=== PATIENT | female | born 1960 | race Caucasian/White ===

== ENCOUNTER 2024-05-21 17:43 | Emergency (ER) | payer MEDICARE, OTHER, SELFPAY ==
[2024-05-21 17:48] VITALS: BP 168/98
[2024-05-21 18:12] LABS: % Basophils 0.4 % (0-2); % Eosinophils 3.8 % (0-6); % Immature Granulocytes 0.4 % (0-0.5); % Lymphocytes 29.5 % (20.5-51.1); % Monocytes 10.8 % (1.7-9.3); % Neutrophils 55.1 % (42.2-75.2); Absolute Eosinophils 0.2 10^3/uL (0-0.7); Absolute Lymphocytes 1.4 10^3/uL (1.2-3.4); Absolute Monocytes 0.5 10^3/uL (0.1-0.6); Absolute Neutrophils 2.6 10^3/uL (1.4-6.5); Hematocrit 43.8 % (37.0-47.0); Hemoglobin 14.2 g/dL (12.0-16.0); Mean Corp Hgb Conc. 32.4 g/dL (33.0-37.0); Mean Corpuscular Hgb 30.7 pg (27.0-31.0); Mean Corpuscular Volume 94.6 fL (81.0-99.0); Mean Platelet Volume 9.1 fL (7.4-10.4); Nucleated Red Blood Cells % 0 %; Platelet Count 217 10^3/uL (130-400); Red Blood Cell Count 4.63 10^6/uL (4.20-5.40); Red Cell Dist. Width 13.2 % (11.5-14.5); White Blood Cell Count 4.7 10^3/uL (4.8-10.8)
[2024-05-21 18:28] LABS: ALT (SGPT) 23 U/L (0-35); AST (SGOT) 29 U/L (14-36); Albumin 4.7 g/dl (3.5-5.0); Alkaline Phosphatase 34 U/L (38-126); Blood Urea Nitrogen 33 mg/dl (7-17); Calcium 10.8 mg/dl (8.4-10.2); Carbon Dioxide 28 mmol/L (22-30); Chloride 101 mmol/L (98-107); Glucose 105 mg/dl (70-99); Potassium 4.2 mmol/L (3.5-5.1); Sodium 140 mmol/L (135-145); Total Bilirubin 0.3 mg/dl (0.2-1.3); Total Protein 6.9 g/dl (6.3-8.2); eGFR > 60.00
[2024-05-21 18:35] LABS: Troponin I < 0.012 ng/ml
[2024-05-21 19:08] VITALS: BMI 22.6
[2024-05-21] MEDS: MAALOX 30 PO (19:17)
--- NOTE | 2024-05-21 20:04 | ED.GENMED ---
History of Present Illness
<Jeancarlos Villavicencio DO - Last Filed: 05/22/24 17:06>
General
Chief Complaint: Chest Pain
Source: patient
Time Seen by Provider: 05/21/24 18:41
History of Present Illness
History of Present Illness:
Patient just discharge from the emergency room. Radiology called suggesting an abnormality on her chest x-ray recommending a CT of the chest to exclude aortic pathology. Patient was called back for the study. No new complaints.
Phy Exam
<Jeancarlos Villavicencio DO - Last Filed: 05/22/24 17:06>
Physical Exam
Physical Exam:
General: Awake, alert, no distress
Vitals: Unremarkable
Neuro: Awake, alert, nonfocal
Scores
<Digna Becker PA-C - Last Filed: 05/22/24 17:07>
Heart Score for Chest Pain Patients
STEMI patient?: Not applicable
Course
<DO Virginia Hilario Last Filed: 05/22/24 17:06>
Orders/Labs/Results
Orders:
Orders
05/21/24 17:43
EKG [Electrocardiogram (*1)] Urgent
Reason for Study: Chest Pain
05/21/24 17:44
EKG- Treatment ONCE
05/21/24 18:02
Complete Blood Count/With Diff Urgent
Comprehensive Metabolic Panel Urgent
Troponin I Urgent
05/21/24 18:54
Mag Hydrox/Al Hydrox/Simeth [Maalox] 30 ml Phenobarb/Hyoscy/Atropine/Scop [] 10 ml Viscous Lidocaine 2% [Xylocaine Viscous Cup] 10 ml PO NOW
CR Chest - 2 Views Urgent
Comment:
Reason For Exam: chest pain
05/21/24 19:15
Mag Hydrox/Al Hydrox/Simeth [Maalox] 30 ml .ROUTE .STK-MED ONE
Phenobarb/Hyoscy/Atropine/Scop [] 10 ml .ROUTE .STK-MED ONE
05/21/24 19:16
Viscous Lidocaine 2% [Xylocaine Viscous Cup] 15 ml .ROUTE .STK-MED ONE
05/21/24 20:12
Pantoprazole [Protonix] 20 mg .ROUTE .STK-MED ONE
05/21/24 20:17
Pantoprazole [Protonix] 20 mg PO NOW STA
Abnormal Lab Results
05/21/24
18:02
WBC 4.7 L 10^3/uL
(4.8-10.8)
MCHC 32.4 L g/dL
(33.0-37.0)
Monocytes % 10.8 H %
(1.7-9.3)
BUN 33 H mg/dl
(7-17)
Glucose 105 H mg/dl
(70-99)
Calcium 10.8 H mg/dl
(8.4-10.2)
Alkaline Phosphatase 34 L U/L
(38-126)
05/21/24 18:02
05/21/24 18:02
Vital Signs
Initial and Last Documented VS:
Initial Vital Signs
Temp Pulse Resp BP Pulse Ox
99.3 F 91 18 168/98 98
05/21/24 17:48 05/21/24 17:48 05/21/24 17:48 05/21/24 17:48 05/21/24 17:48
Last Documented Vital Signs
Temp Pulse Resp BP Pulse Ox
99.3 F 67 20 155/95 97
05/21/24 17:48 05/21/24 20:27 05/21/24 20:27 05/21/24 20:27 05/21/24 20:31
<Digna Becker PA-C - Last Filed: 05/22/24 17:07>
Orders/Labs/Results
Orders:
Orders
05/21/24 17:43
EKG [Electrocardiogram (*1)] Urgent
Reason for Study: Chest Pain
05/21/24 17:44
EKG- Treatment ONCE
05/21/24 18:02
Complete Blood Count/With Diff Urgent
Comprehensive Metabolic Panel Urgent
Troponin I Urgent
05/21/24 18:54
Mag Hydrox/Al Hydrox/Simeth [Maalox] 30 ml Phenobarb/Hyoscy/Atropine/Scop [] 10 ml Viscous Lidocaine 2% [Xylocaine Viscous Cup] 10 ml PO NOW
CR Chest - 2 Views Urgent
Comment:
Reason For Exam: chest pain
05/21/24 19:15
Mag Hydrox/Al Hydrox/Simeth [Maalox] 30 ml .ROUTE .STK-MED ONE
Phenobarb/Hyoscy/Atropine/Scop [] 10 ml .ROUTE .STK-MED ONE
05/21/24 19:16
Viscous Lidocaine 2% [Xylocaine Viscous Cup] 15 ml .ROUTE .STK-MED ONE
05/21/24 20:12
Pantoprazole [Protonix] 20 mg .ROUTE .STK-MED ONE
05/21/24 20:17
Pantoprazole [Protonix] 20 mg PO NOW STA
Abnormal Lab Results
05/21/24
18:02
WBC 4.7 L 10^3/uL
(4.8-10.8)
MCHC 32.4 L g/dL
(33.0-37.0)
Monocytes % 10.8 H %
(1.7-9.3)
BUN 33 H mg/dl
(7-17)
Glucose 105 H mg/dl
(70-99)
Calcium 10.8 H mg/dl
(8.4-10.2)
Alkaline Phosphatase 34 L U/L
(38-126)
05/21/24 18:02
05/21/24 18:02
Vital Signs
Initial and Last Documented VS:
Initial Vital Signs
Temp Pulse Resp BP Pulse Ox
99.3 F 91 18 168/98 98
05/21/24 17:48 05/21/24 17:48 05/21/24 17:48 05/21/24 17:48 05/21/24 17:48
Last Documented Vital Signs
Temp Pulse Resp BP Pulse Ox
99.3 F 67 20 155/95 97
05/21/24 17:48 05/21/24 20:27 05/21/24 20:27 05/21/24 20:27 05/21/24 20:31
<DO Virginia Hilario Last Filed: 05/22/24 17:06>
MDM/Problems Addressed
Differential Diagnosis Includes:
Radiographic anomaly, thoracic aneurysm, thoracic aortic dissection
MDM/Problems Addressed:
2107: Communication received from Dr. Wilkerson. She is concerned there may be widening or asymmetry of the aorto and a aortic aneurysm is part of the differential. Patient already been discharged but I called her at home and spoke to her. She is
on her way back in and we will obtain a CT of her chest
<DO Virginia Hilario Filed: 05/22/24 17:06>
*Critical Care Note
Total Time (30-74mins, 75-104mins- exclusive of procedures): Not Applicable
ED Attending Note
<DO Virginia Hilario Filed: 05/22/24 17:06>
-
Portions of this chart may have been created with voice recognition software.� Occasional wrong word or��sound alike� substitutions may have occurred due to the inherent limitations of voice recognition software.
Discharge Plan
Departure
Patient Disposition: Home (Routine Discharge)
Date of Disposition: 05/21/24
Time of Disposition: 20:04
Patient with high blood pressure during this ER visit?: Yes
Condition: Good
Discharge Problem:
Chest pain, Esophageal spasm
Instructions: Chest Pain PCP Follow Up
Prescriptions:
New
omeprazole 40 mg capsule,delayed release(DR/EC)
40 mg PO DAILY Qty: 30 0RF
No Action
lisinopril
5 mg PO DAILY
Referrals:
Roberta Zuñiga MD [Family Provider] -
Alexa Merlos DO [Active] -
Interventions
Interventions:
*Risk Screen - Suicide Last Done: 05/21/24 17:51
*General Assessment Last Done: 05/21/24 17:51
*Neglect/Abuse Screening Last Done: 05/21/24 17:51
ED- Fall Risk Assessment Last Done: 05/21/24 19:09
*ED COVID-19 Vaccine History Last Done: 05/21/24 17:51
*Nursing Disposition Last Done: 05/21/24 20:31
ED- Cardiac Assessment Last Done: 05/21/24 19:09
Discharge Date and Time
Discharge Date/Time: 05/21/24 20:31
Print Language: SERBIAN
[2024-05-21] MEDS: PROTONIX 20 MG PO (20:18)
[2024-05-21 20:27] VITALS: BP 155/95
== END 2024-05-21 20:31 | disposition home or self-care (01) ==
LOC: EMR 17:43
PROVIDERS: EMERGENCY PHYSICIAN Emergency Medicine; FAMILY PHYSICIAN Family Medicine
DX: R07.9 Chest pain, unspecified (principal); K22.4 Dyskinesia of esophagus
CPT/HCPCS: 99285; 71046; 80053; 84484; 85025; 93005

== ENCOUNTER 2024-05-21 21:36 | Emergency (ER) | payer MEDICARE, OTHER, SELFPAY ==
[2024-05-21 21:42] VITALS: BP 139/73
[2024-05-21 23:53] VITALS: BP 124/75
--- NOTE | 2024-05-22 02:43 | ED.GENMED ---
History of Present Illness
General
Chief Complaint: Cardiac Symptoms
Source: patient and previous radiology exam (Chest x-ray from this evening showing questionable widening of the mediastinum versus uncoiling of the aorta. Noted to have moderate scoliosis of thoracic spine.)
Exam Limitations: none
Time Seen by Provider: 05/21/24 21:44
Nursing documentation reviewed up to this point in time: agreed with
History of Present Illness
History of Present Illness:
63-year-old woman who initially presented to the ED earlier this evening with complaining of lower substernal chest discomfort. Unremarkable EKG as well as laboratory studies.
Chest x-ray shows clear lung pretty, questionable mildly widened mediastinum versus uncoiling of the aorta. Noted to have moderate thoracic scoliosis.
Chest pain resolved after GI cocktail and a dose of Protonix. Thus far has had no return of chest discomfort.
Shortly after patient discharged radiologist notified ED doc with concern for widened mediastinum. Recommending CTA of the chest.
Patient was notified and she returns to the ED for CTA of the chest.
Past History
Past History
ED Past Medical History: HTN
ED Past Surgical History:
Social History
Tobacco: Non-smoker
Alcohol: None
Drug: None
Personal:
Living: with family
Employment: Retired
Family History
Family History: Other (Noncontributory)
Phy Exam
Physical Exam
Physical Exam:
PHYSICAL EXAMINATION:
General: no apparent distress, not acutely ill
HEENT: Oral mucosa is moist. No rhinorrhea.
LUNGS: No respiratory distress.
Neuro: alert and oriented. no focal neurological deficits
Psychiatric: well kept. interactive and cooperative
SKIN: Warm and dry, normal color. No rash. Good turgor.
Course
Orders/Labs/Results
Orders:
Orders
05/21/24 21:44
CT Chest Angio W/wo Iv Contras Urgent
Comment:
Reason For Exam: abn cxr, eval for dissection/aneurysm
Vital Signs
Initial and Last Documented VS:
Initial Vital Signs
Temp Pulse Resp BP Pulse Ox
98.2 F 65 16 139/73 97
05/21/24 21:42 05/21/24 21:42 05/21/24 21:42 05/21/24 21:42 05/21/24 21:42
Last Documented Vital Signs
Temp Pulse Resp BP Pulse Ox
97.9 F 79 18 124/75 97
05/21/24 23:53 05/21/24 23:53 05/21/24 23:53 05/21/24 23:53 05/21/24 23:53
MDM/Problems Addressed
Differential Diagnosis Includes:
Patient returns to the ED as recommended for further evaluation of abnormal chest x-ray finding of questionable mediastinal widening.
Radiologist recommends CT angiogram of the chest assess for potential aortic dissection.
She remains chest pain-free after GI cocktail and oral dose of Protonix during initial ED visit this evening.
Unremarkable laboratory studies earlier this evening including negative troponin.
EKG from earlier this evening showing normal sinus rhythm with occasional unifocal PVCs. Normal axis. Normal intervals. No acute ST-T wave abnormalities.
She does have history of hypertension maintained on low-dose lisinopril. Blood pressure has been well-controlled.
Chronic conditions affecting care: HTN
*Radiology
Radiology exam reviewed: radiology read reviewed (CT of the chest shows no dissection. There is note of 6 mm left lower lobe nodule. Also incidental left intrarenal calculus.)
*Pulse Oximetry
Patient hypoxic: no
*Critical Care Note
Total Time (30-74mins, 75-104mins- exclusive of procedures): Not Applicable
Update Note
Update Note:
CTA of the chest shows no dissection. There is note of incidental 6 mm nodule left lower lobe. To consider repeat CT of the chest in 6 to 12 months to ensure stability.
Patient is lifelong non-smoker.
She remains chest pain-free after GI cocktail and Protonix.
I do suspect her chest pain she experienced earlier today was GERD/esophageal spasm in nature.
A prescription for omeprazole provided at initial ED visit.
Recommend follow-up with PCP for recheck.
Return precautions discussed.
ED Attending Note
-
Portions of this chart may have been created with voice recognition software.� Occasional wrong word or��sound alike� substitutions may have occurred due to the inherent limitations of voice recognition software.
Discharge Plan
Departure
Patient Disposition: Home (Routine Discharge)
Date of Disposition: 05/22/24
Time of Disposition: 00:19
Patient with high blood pressure during this ER visit?: No
Condition: Good
Discharge Problem:
Abnormal finding on chest xray, Nonspecific chest pain
Instructions: Chest Pain PCP Follow Up
Prescriptions:
No Action
lisinopril
5 mg PO DAILY
omeprazole 40 mg capsule,delayed release(DR/EC)
40 mg PO DAILY Qty: 30 0RF
Referrals:
Roberta Zuñiga MD [Family Provider] -
Interventions
Interventions:
*Risk Screen - Suicide Last Done: 05/21/24 21:42
*General Assessment Last Done: 05/21/24 21:51
*Neglect/Abuse Screening Last Done: 05/21/24 21:42
ED- Fall Risk Assessment Last Done: 05/22/24 00:29
*ED COVID-19 Vaccine History Last Done: 05/21/24 21:51
*Nursing Disposition Last Done: 05/22/24 00:29
ED- Pulmonary Assessment Last Done: 05/21/24 22:09
ED- Cardiac Assessment Last Done: 05/21/24 22:09
Discharge Date and Time
Discharge Date/Time: 05/22/24 00:43
Print Language: PASHTO
== END 2024-05-22 00:43 | disposition home or self-care (01) ==
LOC: EMR 21:36
PROVIDERS: EMERGENCY PHYSICIAN Emergency Medicine; FAMILY PHYSICIAN Family Medicine
DX: R07.89 Other chest pain (principal); R91.8 Other nonspecific abnormal finding of lung field; I10 Essential (primary) hypertension
CPT/HCPCS: 99284; 71275; Q9967

== ENCOUNTER → 2024-07-07 06:47 | Outpatient (REF) | payer MEDICARE, OTHER, SELFPAY | LOC: PAVMRI 06:47 | PROVIDERS: ATTENDING PHYSICIAN Physician Assistant; FAMILY PHYSICIAN Family Medicine | DX: M41.25 Other idiopathic scoliosis, thoracolumbar region (principal); M54.16 Radiculopathy, lumbar region; M54.9 Dorsalgia, unspecified | CPT/HCPCS: 72146; 72148 ==

== ENCOUNTER → 2024-08-08 08:13 | Outpatient (REF) | payer MEDICARE, OTHER, SELFPAY | LOC: WDC 08:13 | PROVIDERS: ATTENDING PHYSICIAN Obstetrics & Gynecology; FAMILY PHYSICIAN Family Medicine | DX: Z12.31 Encounter for screening mammogram for malignant neoplasm of breast (principal) | CPT/HCPCS: 77063; 77067 ==

== ENCOUNTER → 2024-08-09 11:34 | Outpatient (REF) | payer MEDICARE, OTHER, SELFPAY | LOC: RAD 11:34 | PROVIDERS: ATTENDING PHYSICIAN Otolaryngology; FAMILY PHYSICIAN Family Medicine | DX: E04.1 Nontoxic single thyroid nodule (principal) | CPT/HCPCS: 76536 ==

== ENCOUNTER → 2024-08-19 13:29 | Outpatient (REF) | payer MEDICARE, OTHER, SELFPAY | LOC: RAD 13:29 | PROVIDERS: ATTENDING PHYSICIAN Internal Medicine Critical Care Medicine; FAMILY PHYSICIAN Family Medicine | DX: R91.1 Solitary pulmonary nodule (principal) | CPT/HCPCS: 71250 ==

== ENCOUNTER → 2024-08-24 10:30 | Outpatient (REF) | payer MEDICARE, OTHER, SELFPAY ==
[2024-08-24 10:46] VITALS: BP 146/99; BP_SYST 84
== END ==
LOC: RADI 10:30
PROVIDERS: ATTENDING PHYSICIAN Otolaryngology; FAMILY PHYSICIAN Family Medicine
DX: E04.1 Nontoxic single thyroid nodule (principal)
CPT/HCPCS: 88173; 10005

== ENCOUNTER 2024-12-26 06:23 | Day surgery (SDC) | payer MEDICARE, OTHER, SELFPAY | END 2024-12-26 10:40 | disposition home or self-care (01) | LOC: GI 06:23 | PROVIDERS: ATTENDING PHYSICIAN Internal Medicine Gastroenterology | DX: K22.89 Other specified disease of esophagus (principal); K44.9 Diaphragmatic hernia without obstruction or gangrene; K29.50 Unspecified chronic gastritis without bleeding | CPT/HCPCS: 43239; 88305; 88342 ==

== ENCOUNTER → 2025-02-01 07:29 | Outpatient (REF) | payer MEDICARE, OTHER, SELFPAY | LOC: RAD 07:29 | PROVIDERS: ATTENDING PHYSICIAN Obstetrics & Gynecology; FAMILY PHYSICIAN Family Medicine | DX: Z78.0 Asymptomatic menopausal state (principal) | CPT/HCPCS: 77080 ==

== ENCOUNTER → 2025-05-12 08:17 | Outpatient (REF) | payer MEDICARE, OTHER, SELFPAY | LOC: HWRAD 08:17 | PROVIDERS: ATTENDING PHYSICIAN Internal Medicine Critical Care Medicine; FAMILY PHYSICIAN Family Medicine | DX: R91.1 Solitary pulmonary nodule (principal) | CPT/HCPCS: 71250 ==